=== PATIENT | female | born 1930 | race Caucasian/White ===

== ENCOUNTER 2019-03-06 23:54 | Inpatient (IN) | payer OTHER ==
[~2019-03-06] VITALS: Ht 172.7 cm; Wt 40.8 kg
[2019-03-07] MEDS ORDERED: LORAZEPAM 2 MG/1 ML VIAL ONE ×2 (00:34→00:45)
[2019-03-07 00:35] LABS: BASOPHILS # (AUTO) 0.1 K/uL (0.0-8.0); BASOPHILS % (AUTO) 0.7 % (0.0-2.0); EOSINOPHILS # (AUTO) 0.4 K/uL (0.0-0.7); EOSINOPHILS % (AUTO) 4.2 % (0.0-7.0); HEMATOCRIT 34.5 % (31.2-41.9); HEMOGLOBIN 11.3 g/dL (10.9-14.3); LYMPHOCYTES # (AUTO) 2.4 K/uL (20.0-40.0); LYMPHOCYTES % (AUTO) 26.2 % (20.5-51.5); MEAN CORPUSCULAR HEMOGLOBIN 30.8 uug (24.7-32.8); MEAN CORPUSCULAR HGB CONC 33 g/dL (32.3-35.6); MEAN CORPUSCULAR VOLUME 93.7 fL (75.5-95.3); MONOCYTES # (AUTO) 0.6 K/uL (2.0-10.0); MONOCYTES % (AUTO) 6.4 % (0.0-11.0); NEUTROPHILS # (AUTO) 5.8 K/uL (1.8-8.9); NEUTROPHILS % (AUTO) 62.5 % (38.5-71.5); PLATELET COUNT (AUTO) 264 K/uL (179-408); RED BLOOD CELL COUNT(AUTO) 3.68 MIL/uL (3.63-4.92); WHITE BLOOD COUNT (AUTO) 9.3 K/uL (3.8-11.8)
[2019-03-07] MEDS ORDERED: LORAZEPAM 2 MG/1 ML VIAL IV ONE ×2 (00:45)
[2019-03-07 00:57] LABS: THYROID STIMULATING HORMONE 2.089 mIU/mL (0.358-3.740)
[2019-03-07 00:58] LABS: BILIRUBIN,DIRECT 0.1 mg/dL (0.0-0.2); BILIRUBIN,TOTAL 0.3 mg/dL (0.2-1.0); CREATININE 0.7 mg/dL (0.6-1.3); POTASSIUM 3.8 mmol/L (3.5-5.1); TOTAL PROTEIN, SERUM 6.7 g/dL (6.4-8.2)
--- NOTE | 2019-03-07 00:58 | NUR ---
PT IS AOX1 (ABLE TO STATE NAME ONLY) REPEATEDLY KEPT LOOKING AND ASKING FOR HER DAUGHTER REORIENTED TO PLACE AND TIME PT PERSISTS ON GETTING DAUGHTER BUT UNABLE TO PROVIDE CONTACT NUMBER STATES"I CANNOT GO HOME, I WANT TO GO HOME AND I NEED MY DAUGHTER" ABLE TO TOLERATE IV MEDS ORDERED MONITORED ACCORDINGLY SIDERAILSX2 UP BED AT LOWEST POSITION
--- NOTE | 2019-03-07 01:00 | NUR ---
UNABLE TO OBTAIN COMPLETE MEDICAL HISTORY AND UNABLE TO DO MEDICATION RECONCILATION DUE TO PATIENT ONLY A/OX1, NO FAMILY MEMBERS PRESENT AT THIS TIME.
--- NOTE | 2019-03-07 01:32 | NUR ---
PT BACK FR CT
--- NOTE | 2019-03-07 02:19 | NUR ---
epic called. air conditioning manager : josh
--- NOTE | 2019-03-07 02:45 | NUR ---
josh call back pending insurance legal assistant call back
--- NOTE | 2019-03-07 04:22 | NUR ---
PENDING CALL BACK FROM INSURANCE ([facility] COORDINATOR
--- NOTE | 2019-03-07 05:11 | NUR ---
HAND OFF AND SBAR GIVEN TO JACKIE CONKLIN
[2019-03-07] MEDS ORDERED: MAGNESIUM HYDROXIDE 30 ML LIQUID UDC PO PRN (05:30)
[2019-03-07] MEDS ORDERED: ONDANSETRON 4 MG/2 ML VIAL IV PRN (05:30)
[2019-03-07] MEDS ORDERED: HYDROCODONE/APAP 5-325MG TABLET PO PRN (05:30)
[2019-03-07] MEDS ORDERED: ZOLPIDEM 5 MG TABLET PO PRN (05:30)
[2019-03-07] MEDS ORDERED: Z GUARD REMEDY PASTE 57 GM TUBE TOP PRN (05:30)
[2019-03-07] MEDS ORDERED: ACETAMINOPHEN 325 MG TABLET PO PRN (05:30)
--- NOTE | 2019-03-07 05:30 | NUR ---
pt transported via [facility] by RN
--- NOTE | 2019-03-07 05:45 | NUR ---
ADMITTED ON TELE FLOOR UNDER THE CARE OF PRECIOUS GATES. PATIENT ALERT BUT WITH CONFUSION, NO SOB NO CHEST PAIN, TELE MONITOR SINUS RHYTHM WITH BUNDLE BRANCH EPISODES. PATIENT IS POOR HISTORIAN, WITH SACRUM, R L BUTTOCK REDNESS, AND L EYE BROWN PURPLE BRUISE, PATIENT HAS NECK COLLAR. CALL LIGHT WITHIN REACH.
[2019-03-07 06:26] VITALS: BP 157/63
[2019-03-07 06:39] VITALS: BP 153/65
[2019-03-07 06:41] VITALS: BP 149/60
[2019-03-07] MEDS: IV NS 1000 ML 1,000 ML IV PRN (08:04)
--- NOTE | 2019-03-07 11:00 | NUR ---
Patient AAOx2. Confused. No s/s of acute distress. No SOB noted. Neck brace in place. Discussed plan of care with daughter at bedside, verbalized understanding. Will continue to monitor.
[2019-03-07 11:04] VITALS: BP 135/66
--- NOTE | 2019-03-07 13:33 | NUR ---
WOUND CARE CONSULT: PT NOT SEEN DUE TO PT TRANSFERRED TO ANOTHER FACILITY.
[2019-03-07 15:08] VITALS: BP 115/62
[2019-03-07] MEDS ORDERED: QUET100T PO (16:17)
[2019-03-07] MEDS ORDERED: MAGN400O6 PO (18:32)
[2019-03-07] MEDS ORDERED: MENT71OI TOP (18:32)
[2019-03-07] MEDS ORDERED: ACET325T53 PO (18:32)
[2019-03-07] MEDS ORDERED: HYDR-3972 PO (18:32)
[2019-03-07] MEDS ORDERED: ONDA4VIA23 IV (18:32)
[2019-03-07] MEDS ORDERED: ZOLP5TAB8 PO (18:32)
[2019-03-07 20:00] VITALS: BP 137/66
--- NOTE | 2019-03-07 20:00 | NUR ---
Received patient awake and oriented x 1. Neck brace in place. Denies pain or SOB. On 2L NC. Noted bruising on the left eye brows. TELE SR 74. long term assessment done. Noted rash on the left breast. Safety initiated. Call light within reach. Will closely monitor
--- NOTE | 2019-03-07 22:00 | NUR ---
Spoke to Roll Inspector Paola from [facility]. There is no hospital bed at the moment at the hospital that is contracted to [facility]. Will continue to monitor.
--- NOTE | 2019-03-08 02:00 | NUR ---
Spoke to sugar cane farm manager Paola from [facility], accepting Doctor at [facility] is Dr. Pride. However, per MD Paola to thought that it is not recommended to transfer without Neuro Consult. Will continue to monitor.
[2019-03-08 05:28] VITALS: BP 132/66
--- NOTE | 2019-03-08 05:49 | NUR ---
Patient slept intermittently t/o shift. No acute distress noted. Neck brace in place. IVF infusing on the right arm. Patent and intact. Good urine output. On O2 2L NC. TELE SR at 70. Vital signs stable. Safety and comfort measures maintained t/o shift. All needs met.
[2019-03-08] MEDS: IV NS 1000 ML 1,000 ML IV PRN ×2 (06:03→18:12)
[2019-03-08 06:30] LABS: BASOPHILS # (AUTO) 0.1 K/uL (0.0-8.0); BASOPHILS % (AUTO) 0.7 % (0.0-2.0); EOSINOPHILS # (AUTO) 0.5 K/uL (0.0-0.7); EOSINOPHILS % (AUTO) 6.6 % (0.0-7.0); HEMATOCRIT 33.6 % (31.2-41.9); LYMPHOCYTES # (AUTO) 2.1 K/uL (20.0-40.0); LYMPHOCYTES % (AUTO) 27.8 % (20.5-51.5); MEAN CORPUSCULAR HEMOGLOBIN 30.9 uug (24.7-32.8); MEAN CORPUSCULAR HGB CONC 33 g/dL (32.3-35.6); MEAN CORPUSCULAR VOLUME 94.3 fL (75.5-95.3); MONOCYTES # (AUTO) 0.7 K/uL (2.0-10.0); NEUTROPHILS # (AUTO) 4.2 K/uL (1.8-8.9); NEUTROPHILS % (AUTO) 55.9 % (38.5-71.5); PLATELET COUNT (AUTO) 237 K/uL (179-408); RED BLOOD CELL COUNT(AUTO) 3.56 MIL/uL (3.63-4.92); WHITE BLOOD COUNT (AUTO) 7.6 K/uL (3.8-11.8)
[2019-03-08 06:45] LABS: CREATININE 0.6 mg/dL (0.6-1.3); MAGNESIUM 2.1 mg/dL (1.8-2.4); POTASSIUM 4.1 mmol/L (3.5-5.1)
--- NOTE | 2019-03-08 07:42 | NUR ---
Patient resting comfortably in bed at this time. SR on telemetry. No signs of distress. IVF running. Bedrest, bed alarm on. Only alert to self. Possible transfer today. Safety measures implemented. Call light within reach of patient. Will continue to monitor closely throughout shift.
[2019-03-08 11:10] VITALS: BP 142/73
--- NOTE | 2019-03-08 12:54 | NUR ---
TEXTED DR. JOHNSTON FOR MRI APPROVAL.
[2019-03-08] MEDS ORDERED: LORAZEPAM 2 MG/1 ML VIAL IV PRN (14:15)
[2019-03-08 15:10] VITALS: BP 102/58
[2019-03-08 16:37] LABS: *BILIRUBIN,URIN NEGATIVE (NEGATIVE); *BLOOD, URINE NEGATIVE (NEGATIVE); *CLARITY,URINE CLEAR (CLEAR); *COLOR,URINE YELLOW (YELLOW); *KETONES,URINE NEGATIVE (NEGATIVE); *UROBILINOGEN,URINE 0.2 E.U./dl (NORMAL); LEUKOCYTE ESTERASE ,URINE NEGATIVE (NEGATIVE); NITRITE, URINE NEGATIVE (NEGATIVE); UGLUCOSE NEGATIVE (NEGATIVE)
--- NOTE | 2019-03-08 17:08 | NUR ---
MRI Spine with or without contrast ordered for patient by MD to be done at [place]. Consent forms/MRI forms/Contrast administration consent form signed by patient's son, Mehdi. Patient scheduled to be picked up by ambulance at 6pm. Mahendra at [facility] confirmed that it is okay for patient to be transferred for MRI at 6pm.
--- NOTE | 2019-03-08 17:55 | NUR ---
ATIVAN 0.5 MG IV ONE TIME DOSE ADMINISTERED PRIOR TO TRANSFER TO MRI SPINE AT [facility].
--- NOTE | 2019-03-08 18:20 | NUR ---
PATIENT TRANSPORTED TO [facility] FOR MRI SPINE AT THIS TIME. STABLE CONDITION, NO SIGNS OF DISTRESS. VITAL SIGNS STABLE. TRANSPORTED OUT OF [facility] WITH AMBULANCE. TELEMETRY TAKEN OFF AND LEFT INSIDE OF ROOM.
--- NOTE | 2019-03-08 19:12 | NUR ---
notified maintenance technician 3rd shift nurse to notify KODY Leal of MRI Spine results of patient once resulted and to notify Inez from [facility] where KODY Leal and Neurosurgeon decide to place to the patient.
--- NOTE | 2019-03-08 19:14 | NUR ---
Patient at [facility] for MRI Spine at this time. Report given to science center display builder RN.
[2019-03-08 19:37] VITALS: BP 98/50
--- NOTE | 2019-03-08 19:38 | NUR ---
PATIENT AT [facility], MRI STAFF REPORTED THAT PATIENT UNCOOPERATIVE WITH THE TEST, DON'T WANT STAY STILL, INSTEAD CLIMBING OUT THE MACHINE. NOTIFY CHARGE NURSE.
--- NOTE | 2019-03-08 20:12 | NUR ---
PATIENT BACK FROM [facility], MRI NOT DONE, UNCOOPERATIVE WITH THE TEST. NOTIFY LUÍS DARLING NP THAT PATIENT IS BACK AND MRI NOT DONE. LUÍS DARLING NP NOTIFY ALSO THAT PATIENT CLIMBS OOB RISK FOR FALL AND INJURY, WITH ORDER FOR SITTER FOR SAFETY.
[2019-03-08 20:32] VITALS: BP 154/71
--- NOTE | 2019-03-08 20:55 | NUR ---
SRIDEVI FROM [facility] CALLED AND ASK ABOUT MD DECISION. INFORMED [employer] THAT LUÍS DARLING NP WAS NOTIFIED ABOUT THAT MRI WAS UNSUCCESSFUL DUE PATIENT BEHAVIOR, LUÍS STATED THAT "NOTHING SHE CAN DO RIGHT NOW IF TEST NOT DONE". [employer] SAID OKEYED THEN.
[2019-03-09 00:10] VITALS: BP 139/76
[2019-03-09 04:01] VITALS: BP 151/47
--- NOTE | 2019-03-09 05:57 | NUR ---
PATIENT SLEPT MOST OF THE NIGHT, C COLLAR IN PLACE, PATIENT TELE MONITOR SINUS RHYTHM 72. PATIENT HAS NO S/S OF SOB, NO S/S OF CHEST PAIN. PATIENT HAS EPISODES OF RESISTIVE TO CARE, AND AGITATION, REDIRECT PATIENT ABLE TO FOLLOW. PATIENT IS 1;1 SITTER FOR SAFETY, CONT TO MONITOR.
[2019-03-09 06:31] LABS: BASOPHILS % (AUTO) 0.6 % (0.0-2.0); EOSINOPHILS # (AUTO) 0.4 K/uL (0.0-0.7); EOSINOPHILS % (AUTO) 5.1 % (0.0-7.0); HEMATOCRIT 34.3 % (31.2-41.9); HEMOGLOBIN 11.4 g/dL (10.9-14.3); LYMPHOCYTES # (AUTO) 2.2 K/uL (20.0-40.0); LYMPHOCYTES % (AUTO) 28.9 % (20.5-51.5); MEAN CORPUSCULAR HEMOGLOBIN 30.6 uug (24.7-32.8); MEAN CORPUSCULAR HGB CONC 33 g/dL (32.3-35.6); MEAN CORPUSCULAR VOLUME 92.4 fL (75.5-95.3); MONOCYTES # (AUTO) 0.6 K/uL (2.0-10.0); MONOCYTES % (AUTO) 7.6 % (0.0-11.0); NEUTROPHILS # (AUTO) 4.5 K/uL (1.8-8.9); NEUTROPHILS % (AUTO) 57.8 % (38.5-71.5); PLATELET COUNT (AUTO) 243 K/uL (179-408); RED BLOOD CELL COUNT(AUTO) 3.71 MIL/uL (3.63-4.92); WHITE BLOOD COUNT (AUTO) 7.8 K/uL (3.8-11.8)
[2019-03-09 06:54] LABS: CREATININE 0.6 mg/dL (0.6-1.3); MAGNESIUM 2.2 mg/dL (1.8-2.4); PHOSPHOROUS 2.8 mg/dL (2.5-4.9); POTASSIUM 4.1 mmol/L (3.5-5.1)
--- NOTE | 2019-03-09 07:30 | NUR ---
Patient calm and comfortable upon initial assessment; patient with stable vital signs , patient will continue to be monitored.
[2019-03-09] MEDS ORDERED: GADOTERIDOL 279.3 MG/ML, 10 ML VIAL ONE (08:29)
[2019-03-09 11:30] VITALS: BP 128/42
[2019-03-09] MEDS ORDERED: LORAZEPAM 2 MG/1 ML VIAL IV ONE ×2 (13:15→18:30)
[2019-03-09] MEDS ORDERED: MORPHINE SULFATE 2 MG/1 ML DISP.SYRIN IV ONE ×2 (13:15→18:30)
--- NOTE | 2019-03-09 13:40 | NUR ---
WOUND CARE CONSULT: PT PRESENTS WITH LEFT EYEBROW CLOSED LACERATION, NO DRAINAGE NOTED. PT IS VERY THIN AND BONY. RECOMMENDATIONS MADE FOR SKIN PROTECTION. DISCUSSED WITH NURSING STAFF. DIETARY CONSULT IN PLACE. PT WEARING CERVICAL COLLAR. WILL SEE PRJuan CÁRDENAS IN AGREEMENT WITH PLAN OF CARE.
[2019-03-09] MEDS: IV NS 1000 ML 1,000 ML IV PRN (15:13)
[2019-03-09 15:25] VITALS: BP 128/55
--- NOTE | 2019-03-09 18:58 | NUR ---
Patient with moments of agitation through out shift with no signs of distress; patient with stable vital signs ; patient daughter and son at bedside through out shift; patient given Ativan and morphine for reattempt of cervical spine MRI as patient agitated throughout yesterday attempt ; patient left via ambulance cleared by Md to be taken BLS. Patient transferred in stable condition. Report given to oncoming nurse.
--- NOTE | 2019-03-09 19:00 | NUR ---
Received report from AM nurse regarding patient. Pt is currently not in the floor, in [facility] for MRI. Will await for patient's return and monitor accordingly.
[2019-03-09 20:37] VITALS: BP 131/58
--- NOTE | 2019-03-09 21:15 | NUR ---
1999: Received a call from Yas (FELISHA) that bed is available for patient to be DC'ed tonight to [facility] Room 218 A (Contact is Leonor RN: [phone]). El Brazil will make arrangements for transportation and will call us back (Digital Press Operator: Sisi [phone]). Kia Leal NP made aware. TO received for DC to [facility], noted and discharge process started. Son Mehdi ([phone]) to be updated if El Brazil calls back with ambulance ETA per Yas BAEZA. 2014: Received call from [facility] that ETA for vegetable picker is 2114. Notified Mehdi of vegetable picker, discharge instructions reviewed over the phone, consent and acknowledgement for transfer received. Paperworks prepared, co-signed with Charge Nurse on duty. 2019: Report given to Butch ([facility]), ETA provided. 2029: Patient came back from [place] for the MRI. Stable. VS taken and recorded. All belongings accounted for. Prepared for discharge. Normal Sinus Rhythm on Tele. 2114: All paperworks prepared. Pt's belongings ready. Awaiting vegetable picker.
--- NOTE | 2019-03-09 22:00 | NUR ---
Pt picked up at this time by [facility] ([facility]). Mehdi contacted, no answer. Left message. Pt left in stable condition.
== END 2019-03-09 22:24 | disposition short-term general hospital (02) | DRG 91 ==
LOC: ER 03-07 00:01 → TELE3 03-07 05:06
PROVIDERS: ADMIT Nurse Practitioner Acute Care; ATTEND Nurse Practitioner Acute Care
DX: G92 Toxic encephalopathy (principal); E43 Unspecified severe protein-calorie malnutrition; S01.81XD Laceration without foreign body of other part of head, subsequent encounter; W19.XXXD Unspecified fall, subsequent encounter; F03.90 Unspecified dementia, unspecified severity, without behavioral disturbance, psychotic disturbance, mood disturbance, and anxiety; R29.6 Repeated falls; M46.82 Other specified inflammatory spondylopathies, cervical region
CPT/HCPCS: 36415; 70030-TC; 70450; 71045; 72125; 83735; 84100; 84443; 85025; 85730; 93005; 93307; A4663; A9579; C1758; G0378; J2060; J2270; J7030